=== PATIENT | male | born 1930 | race Caucasian/White ===

== ENCOUNTER 2016-08-09 00:13 | Day surgery (SDC) | payer MEDICARE, OTHER ==
[~2016-08-09 00:13] MED LIST: ATEN25TA PO; DIAZ5TAB3 PO; FERR325T39 PO; FLUT9.9S NOSTRIL; GALA8CAP PO; LOSA100T29 PO; MELA1TAB11 PO; POLY17PO6 PO; SCOP1PAT TD; TERA2CAP4 PO
== END 2016-08-09 23:59 | disposition home or self-care (01) ==
LOC: SOUO 00:13
PROVIDERS: ATTEND Physician Assistant
DX: I73.9 Peripheral vascular disease, unspecified (principal)

== ENCOUNTER 2016-08-27 01:35 | Day surgery (SDC) | payer MEDICARE, OTHER ==
[2016-08-27] VITALS (13 sets, daily range): BP systolic 143–168; BP diastolic 73–100; PULSE 60–66; RESP 13–18; O2SAT 98–100
[~2016-08-27] VITALS: Ht 188 cm; Wt 75.0 kg
--- NOTE | 2016-08-27 08:01 | NUR ---
GEOFF: Pt arrived to [facility] for angiogram procedure at 0700, with him and helped answer medical history questions. IV X2 started, one 20 g IV in each arm. VSS. C/O 07/07 pain in feet, states this is chronic and normal for him. at bedside, questions about procedure answered. Addendum: 08/27/16 at 0907 by BOOKER ROBERTS RN Villagomez catheter placed per order, pt tolerated fair. Taken to [facility] for procedure at 0900 in bed by [facility] staff. Pt's waiting for pt in [facility] bed 3
[2016-08-27] MEDS ORDERED: Heparin 10,000 Unit/1,000 mL NS Premix IV ONE (08:05)
[2016-08-27] MEDS ORDERED: Heparin 1,000 Unit/mL 10 mL Inj ONE (08:05)
[2016-08-27] MEDS ORDERED: fentaNYL-PF 50 mCg/mL 2 mL Inj ONE (09:11)
--- NOTE | 2016-08-27 12:50 | NUR ---
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 at bedside. VSS. R groin with Exoseal, tegaderm dressing C/D/I, R pedal and post tib pulses audible with doppler, initially pt had no c/o pain. Pt had c/o lower back pain around 1215. notified and stated that pt should be on bedrest for 3 hours post cath, but okay to move around in bed. Pt repositioned and now has no further c/o pain at this time.
--- NOTE | 2016-08-27 13:49 | DRSVH ---
PROCEDURE: ANGIO, LE, UNILATERAL INDICATIONS: PVD COMPARISON: None. Technique: 1. Conscious sedation for 60 minutes. 2. Antegrade access of the right common femoral artery. 3. Arteriogram performed in stations to the level of the ankle. 4. Balloon angioplasty of a focal high-grade stenosis within the distal SFA. 5. Balloon angioplasty of multiple focal stenoses within the right posterior tibial artery. 6. Balloon angioplasty for a focal high-grade stenosis within the proximal peroneal artery. 7. Completion arteriogram. 8. Sheath removal, external closure device placement, and hemostasis. The indications, alternatives, benefits, risks, and complications of the procedure were explained to the patient.. Informed written consent was obtained and placed in the chart. The patient was christopher t to the angiography suite, and conscious sedation was administered intravenously by [facility] staff, while continuous cardiorespiratory monitoring was performed. Maximum sterile barrier technique was employed per standard protocol, including hand hygiene, cap, ma sk, sterile gown and gloves, and 2% chlorhexidine. One percent lidocaine was used to anesthetized sk in over the area of interest. Using a micropuncture kit, the common femoral artery was accessed in an tegrade fashion. The micropuncture sheath was exchanged for a 5 [place] sheath. Arteriogram was perfor med in stations to the level of the ankle. With the aid of a Kumpe catheter, a Glidewire was advanced across the stenosis within the distal SFA. The Glidewire was exchanged for a glide advantage wire. B alloon angioplasty was then performed for a focal high-grade stenosis of the distal SFA with a 5 mm x 40 mm high-pressure balloon and then subsequently with a 6 mm x 20 mm high-pressure balloon. Complet ion arteriogram was performed. Next, a 100 cm catheter was advanced over the glide advantage, the gli de advantage was removed, and an 018 wire was advanced into the posterior tibial artery. Balloon heidi oplasty was performed with a 2 mm x 80 mm high-pressure balloon. Completion arteriogram was performed . The 018 wire was then advanced into the peroneal artery and balloon angioplasty was performed with a 2 mm x 80 mm high-pressure balloon. Completion arteriogram was performed. The wire was removed, the sheath was removed, and external closure device was deployed, and hemostasi s was achieved. FINDINGS: Initial arteriogram demonstrates a widely patent proximal superficial femoral artery and p rofunda artery. A focal high-grade stenosis is present within the distal SFA. Multifocal high-grade s tenoses are present throughout the posterior tibial artery. A focal high-grade stenosis is present at the origin of the peroneal artery. Multifocal stenoses are present at the origin of the anterior tib ial artery which is occluded approximately 6 cm past its origin. Completion arteriogram demonstrates near complete resolution of the focal high-grade stenosis within the distal SFA. Completion arteriogram demonstrates markedly reduced stenoses throughout the posterio r tibial artery with only trace residual stenosis remaining. Completion arteriogram demonstrates near complete resolution of the near occlusion at the origin of the peroneal artery when compared with th e prior study. IMPRESSION: 1. Status post angioplasty of a focal high-grade stenosis of the distal SFA, multifocal stenoses with in the posterior tibial artery, and a high-grade stenosis at the origin of the peroneal artery. Dictated by: Lula Marie M.D. on 08/27/2016 at 13:29 Approved by: Lula Marie M.D. on 08/27/2016 at 13:47
--- NOTE | 2016-08-27 15:43 | NUR ---
Discharge: Pt d/c'd home at 1540. Pt was able to ambulated without difficulty back to baseline level of ambulation prior to d/c home. R groin dressing C/D/I, no redness or bleeding noted on R groin. R pedal pulse audible with doppler and very weak to palpation. No c/o pain, pt states he has mild discomfort in R calf, normal for him. D/C instructions with follow up information given to pt and pt's , both stated understanding. Pt ambulated off unit at 1540 and assisted into personal vehicle.
== END 2016-08-27 23:59 | disposition home or self-care (01) ==
LOC: SOUO 01:35
PROVIDERS: ATTEND Radiology Vascular & Interventional Radiology
DX: I70.201 Unspecified atherosclerosis of native arteries of extremities, right leg (principal); N18.9 Chronic kidney disease, unspecified; R25.2 Cramp and spasm
CPT/HCPCS: 37224; 37228; 37232; 99152; 99153; C1725; C1769; C1894; J0131; J1644; J2250; J3010; Q9967